=== PATIENT | male | born 1985 | race Caucasian/White ===

== ENCOUNTER 2018-11-23 20:11 | Inpatient (IN) | payer MEDICAID ==
[~2018-11-23] VITALS: Ht 182.9 cm; Wt 74.4 kg
[2018-11-23] MEDS ORDERED: ONDANSETRON HCL/PF 4 MG/2 ML VIAL IVP ONE (21:00)
[2018-11-23] MEDS ORDERED: HYDROCODONE/APAP 5/325MG 1 EACH TABLET PO ONE (21:00)
[2018-11-23] MEDS ORDERED: IV NS 0.9% 1,000 ML BAG IV ONE (21:00)
[2018-11-23] MEDS ORDERED: VANCOMYCIN 1 GM in IV D5W 250 ML IV ONE (21:00)
[2018-11-23 21:13] LABS: BASOPHILS # (AUTO) 0.1 /CMM (0.0-0.2); BASOPHILS % (AUTO) 0.9 % (0.0-2.0); EOSINOPHILS % (AUTO) 1.7 % (0.0-6.0); HEMATOCRIT 27 % (39-51); HEMOGLOBIN 8.4 g/dL (13.5-17.5); LYMPHOCYTES # (AUTO) 1.1 /CMM (0.8-4.8); LYMPHOCYTES % (AUTO) 10.3 % (20.0-44.0); MEAN CORPUSCULAR HGB CONC 31 g/dl (31.0-36.0); MEAN CORPUSCULAR VOLUME 70 fL (80-96); MONOCYTES # (AUTO) 1.2 /CMM (0.1-1.30); MONOCYTES % (AUTO) 11.1 % (2.0-12.0); NEUTROPHILS # (AUTO) 8.3 /CMM (1.8-8.9); PLATELET COUNT (AUTO) 822 /CMM (150-450); RED BLOOD CELL COUNT(AUTO) 3.92 MIL/uL (4.5-6.0); WHITE BLOOD COUNT (AUTO) 10.9 K/uL (4.3-11.0)
[2018-11-23] MEDS ORDERED: VANCOMYCIN 1 GM VIAL ONE (21:16)
[2018-11-23] MEDS ORDERED: ONDANSETRON HCL/PF 4 MG/2 ML VIAL ONE (21:16)
[2018-11-23] MEDS ORDERED: HYDROCODONE/APAP 5/325MG 1 EACH TABLET ONE (21:17)
[2018-11-23 21:22] LABS: CALCIUM, SERUM 8.8 mg/dL (8.5-10.1); CARBON DIOXIDE 29 mmol/L (21-32); CHLORIDE 103 mmol/L (98-107); CREATININE 0.9 mg/dL (0.6-1.3); GLUCOSE 144 mg/dL (74-106); POTASSIUM 4.1 mmol/L (3.5-5.1); SODIUM SERUM 139 mmol/L (136-145); UREA NITROGEN, BLOOD 19 mg/dL (7-18)
--- NOTE | 2018-11-23 21:25 | NUR ---
BIBRA. C/O "FOUND OUTSIDE, HAVING BUTTOCK PAIN FROM PRESSURE ULCER. +N.V +DIZZY. +LEG PAIN" AOX4. VSS. R LEG AMPUTATION FROM CELLULITIS. PT AAOX4, VSS. RR EVEN & UNLABORED. DENIES CP, SOB, WEAKNESS @ THIS TIME. PT HAS STAGE 3 DECUB ON SACRAL, RT BUTTOCK & LEFT HEEL. WOUND ON RT LOWER LEG & LT FOOT. PT SEEN & EVAL'D BY STACI NIELSEN. MEDICATED ORDERED & WILL CONT TO MONITOR.
[2018-11-23 21:38] LABS: ACETAMINOPHEN 43 ug/ml (10-30); ALANINE AMINOTRANSFERASE 12 U/L (12-78); ALCOHOL, BLOOD < 3 mg/dL (0-0); ALKALINE PHOSPHATASE 114 U/L (46-116); ASPARTATE AMINOTRANSFERASE 20 U/L (15-37); BILIRUBIN,DIRECT 0.1 mg/dL (0.0-0.2); BILIRUBIN,TOTAL 0.1 mg/dL (0.2-1.0); TOTAL PROTEIN, SERUM 7.3 g/dL (6.4-8.2)
--- NOTE | 2018-11-23 22:03 | NUR ---
CALLED [facility]. HEALTH PROGRAM MANAGER WAS PAGED.
[2018-11-23 22:07] LABS: LYMPHOCYTES % (MANUAL) 10 % (16-48); MONOCYTES % (MANUAL) 8 % (0-11.0); NEUTROPHILS % (MANUAL) 82 (42-76)
--- NOTE | 2018-11-23 22:10 | NUR ---
CALLED HOUSE SUP FOR MS BED
--- NOTE | 2018-11-23 22:33 | NUR ---
REPORT GIVEN TO RONEY FRAZIER.
[2018-11-23 23:00] VITALS: BP 136/63
--- NOTE | 2018-11-23 23:00 | NUR ---
MS FISH AND WILDLIFE BIOLOGIST NOTE Patient came to unit via gurney, admitted for cellulitis of the sacral wound. Patient is alert, oriented x 3. Breathing even and unlabored. Not in any distress, on room air. Vital signs taken and recorded. IV access on RAC g#20, intach, patent, no signs of infiltration. Skin assessment done, pictures taken and placed in chart. Oriented to call light- placed within easy reach. bed in low, locked position. Will continue to monitor accordingly
[2018-11-23] MEDS ORDERED: QUET400T PO (23:09)
[2018-11-23] MEDS ORDERED: PREG300C PO (23:09)
[2018-11-23] MEDS ORDERED: HYDROCODONE/APAP 5/325MG 1 EACH TABLET PO PRN (23:30)
[2018-11-23] MEDS ORDERED: Z GUARD REMEDY 2 OZ OINT TP PRN (23:30)
[2018-11-23] MEDS ORDERED: ENOXAPARIN SODIUM 40 MG/0.4 ML DISP.SYRIN SQ SCH (23:30)
[2018-11-23] MEDS ORDERED: MAG HYDROX/AL HYDROX/SIMETH 30 ML UDC PO PRN (23:30)
[2018-11-23] MEDS ORDERED: MAGNESIUM HYDROXIDE 30 ML UDC PO PRN (23:30)
[2018-11-23] MEDS ORDERED: ACETAMINOPHEN 325 MG TABLET PO PRN (23:30)
[2018-11-23] MEDS ORDERED: ZOLPIDEM TARTRATE 5 MG TABLET PO PRN (23:30)
[2018-11-23 23:32] LABS: APPEARANCE,URINE Clear (CLEAR); BILIRUBIN,URINE SMALL (NEGATIVE); BLOOD, URINE Negative Ery/uL (NEGATIVE); COLOR,URINE Yellow (YELLOW); KETONES,URINE Trace (NEGATIVE); LEUKOCYTE ESTERASE ,URINE Negative (NEGATIVE); NITRITE, URINE Negative (NEGATIVE); PH,URINE 8.5 (5.0-8.0); PROTEIN,URINE Trace mg/dl (NEGATIVE); UGLUCOSE Negative (NEGATIVE); UROBILINOGEN,URINE >=8.0 EU/dL (0.2)
[2018-11-23 23:38] LABS: BACTERIA,URINE Few /HPF (None Seen); RBC,URINE NONE SEEN /HPF (0-2); SQUAMOUS EPITHELIAL CELL,UR Few /HPF (None Seen); WBC,URINE NONE SEEN /HPF (0-3)
[2018-11-23] MEDS: MORPHINE SULFATE INJ 2 MG/ML DISP.SYRIN IV PRN (23:40)
[2018-11-23] MEDS ORDERED: ZOSYN IVPB 3.375 G in IV D5W 50ml IV ONE (23:45)
[2018-11-24] MEDS ORDERED: PIPERACILLIN /TAZOBACTAM 3.375 G VIAL IV ONE (00:44)
--- NOTE | 2018-11-24 00:48 | NUR ---
RN NOTES Received a telephone order from Dr. Sidhu to GAMALIEL velazquez. Order noted and carried out
[2018-11-24 02:35] VITALS: BP 136/63
[2018-11-24 06:22] LABS: BASOPHILS % (AUTO) 0.5 % (0.0-2.0); EOSINOPHILS % (AUTO) 3.4 % (0.0-6.0); HEMATOCRIT 30 % (39-51); HEMOGLOBIN 8.8 g/dL (13.5-17.5); LYMPHOCYTES # (AUTO) 1.3 /CMM (0.8-4.8); LYMPHOCYTES % (AUTO) 15.5 % (20.0-44.0); MEAN CORPUSCULAR HGB CONC 30 g/dl (31.0-36.0); MEAN CORPUSCULAR VOLUME 71 fL (80-96); MONOCYTES # (AUTO) 1.3 /CMM (0.1-1.30); MONOCYTES % (AUTO) 15.4 % (2.0-12.0); NEUTROPHILS # (AUTO) 5.4 /CMM (1.8-8.9); NEUTROPHILS % (AUTO) 65.2 % (43.0-81.0); PLATELET COUNT (AUTO) 771 /CMM (150-450); WHITE BLOOD COUNT (AUTO) 8.2 K/uL (4.3-11.0)
--- NOTE | 2018-11-24 06:34 | NUR ---
MS RN CLOSING NOTES Patient still sleeping in bed, easily arousable. Breathing even and unlabored. Not in any distress. On 2L O2 via nasal cannula. No acute changes overnight. No complaints of pain overnight. Patient used CPM machine for about 2 hrs- tolerating well. Peripheral IV infusing at 50mL/hr. All needs attended to. Will endorse AMANDEEP to oncoming RN. Addendum: 11/24/18 at 0635 by RONEY MARTINEZ RN WRONG PATIENT
--- NOTE | 2018-11-24 06:43 | NUR ---
MS RN CLOSING NOTES Patient still sleeping in bed, arousable. Breathing even and unlabored. Not in any distress, on room air. IV access on RAC g#20 intact and patent. No complaints of pain or discomfort at this time. No acute changes overnight. All needs attended to. Safety measures in place. Will endorse AMANDEEP to oncoming RN
[2018-11-24 07:06] LABS: CALCIUM, SERUM 8.6 mg/dL (8.5-10.1); MAGNESIUM 1.8 mg/dL (1.8-2.4); PHOSPHORUS 3.4 mg/dL (2.5-4.9); POTASSIUM 4.2 mmol/L (3.5-5.1)
[2018-11-24] MEDS ORDERED: FEE PK DOSING 1 MIN EA MC ONE (07:08)
--- NOTE | 2018-11-24 07:45 | NUR ---
MS RN NOTES RECEIVED PATIENT IN BED ASLEEP, AROUSABLE. HOB ELEVATED. DENIES ANY C/O PAIN NOR DISCOMFORT AT THIS TIME. RAC PERIPHERAL LINE INTACT AND PATENT WITHOUT S/S OF COMPLICATIONS. RESTING COMFORTABLY IN BED. BED IN LOWEST POSITION. CALL LIGHT WITHIN REACH. BED ALARM ON.
[2018-11-24 08:00] VITALS: BP 143/83
[2018-11-24 08:10] LABS: THYROID STIMULATING HORMONE 1.955 uIU/mL (0.358-3.74)
[2018-11-24] MEDS: VANCOMYCIN 1 GM in IV D5W 250 ML IV SCH ×3 (08:34→22:08)
[2018-11-24 08:54] LABS: BAND % (MANUAL) 3 % (0.0-5.0); EOSINOPHILS % (MANUAL) 4 % (0-4); LYMPHOCYTES % (MANUAL) 18 % (16-48); MONOCYTES % (MANUAL) 13 % (0-11.0); NEUTROPHILS % (MANUAL) 62 (42-76)
[2018-11-24] MEDS: MORPHINE SULFATE INJ 2 MG/ML DISP.SYRIN IV PRN ×3 (09:17→17:58)
[2018-11-24] MEDS: ONDANSETRON HCL/PF 4 MG/2 ML VIAL IVP PRN (09:18)
--- NOTE | 2018-11-24 09:30 | NUR ---
MS RN NOTES SPOKE TO PATIENT AND VERIFIED DOSE FOR SEROQUEL AND LYRICA. PATIENT STATES, HE TAKES SEROQUEL 400 MG AND LYRICA 600MG ALL AT ONCE AT NIGHT. NOTIFIED JASS FROM PHARMACY.
--- NOTE | 2018-11-24 10:00 | NUR ---
MS RN NOTES NOTED PATIENT PULLED OUT IV PERIPHERAL LINE, NEW IV SITE INITIATED TO RIGHT HAND #22 LAZARA WELL. INTACT AND PATENT. FREQUENT REMINDERS AND EDUCATION PROVIDED TO PATIENT FOR PROPER POSITIONING IN BED. PATIENT INDEPENDENT WITH BED MOBILITY. PATIENT ABLE TO PUT SELF IN BED ALVARADO AND CONTINENT OF BLADDER WITH THE USE OF URINAL. PATIENT FREQUENTLY VISUALLY CHECKED DUE TO PATIENT SLEEPING WITH HEAD AND ARM HANGING ON SIDE OF HEAD. DESPITE EDUCATION AND RISKS EXPLAINED, PILLOWS PROVIDED AND EXTRA BLANKETS REQUESTED, PATIENT PREFERS TO SLEEP IN THAT POSITION. EDUCATED PATIENT OF IV TUBING AND NOT TO REMOVE TUBING AND TO CALL FOR ASSISTANCE. CALL LIGHT WITHIN REACH. BED IN LOWEST POSITION.
[2018-11-24] MEDS: PIPERACILLIN /TAZOBACTAM 3.375 G in IV D5W 100 ML IV SCH ×2 (10:03→17:58)
--- NOTE | 2018-11-24 10:20 | NUR ---
WOUND CARE CONSULT: PT PRESENTS WITH LEFT FOOT AND HEEL ULCERS, RT BELOW KNEE AMPUTATION STUMP ESCHAR, RT AND LEFT BUTTOCK STAGE 4 ULCERS, LEFT MID BUTTOCK STAGE 3 ULCER AND SACRAL STAGE 4 ULCER, PRESENT ON ADMISSION. RECOMMENDATIONS MADE FOR WOUND CARE AND DISCUSSED WITH NURSING STAFF. DEFER TO DPM FOR LOWER EXTREMITY WOUNDS. DR POLK AWARE OF DPM CONSULT REQUEST AND DR JAIME KELLEY AWARE OF SURGICAL CONSULT REQUEST. ISOFLEX LOW AIRLOSS BED TO BE PLACED. WILL SEE PRN. HARMON IN AGREEMENT WITH PLAN OF CARE. Addendum: 11/24/18 at 1023 by DEVENDRA BOWER WNDNU Amended: Links added.
[2018-11-24] MEDS ORDERED: HYDROGEL DRESSING 90 GM TUBE TP PRN (10:30)
--- NOTE | 2018-11-24 11:27 | NUR ---
Social service consult requested by Dr. Sidhu for homelessness. Pt. is a 33 year old male with a history of bipolar disorder who came to ED complaining of chronic sacral and foot wounds which he states have been more painful recently. OSWALDO met with pt. bedside. Pt. is alert and oriented x 4. Pt. has his wheelchair bedside. Pt. has right leg BKA. Pt. is not very cooperative with SW. When asked how long he has been homeless, pt. states, " I don't know." OSWALDO asked pt. what is his discharge plan, and pt. stated, " I am going to live my life, I have hotels and places I can go." SW is unable to assess any further due to pt. being uncooperative. OSWALDO updated Med Surg 3 FAIZAN Boo and medical case worker Brady. OSWALDO is available, if needed.
[2018-11-24] MEDS: HYDROGEL DRESSING 90 GM TUBE TP SCH (13:30)
[2018-11-24] MEDS: DAKINS QUARTER STRENGTH (0.125%) 480 ML BOTTLE TOP SCH (13:30)
--- NOTE | 2018-11-24 14:30 | NUR ---
MS RN NOTES PATIENT OBSERVED REMOVING IV TUBING CONNECTION USING TEETH AND HAND. REMINDED AND EDUCATED PATIENT TO CALL FOR ASSISTANCE AND THAT IV MEDICATIONS ARE BEING GIVEN.
--- NOTE | 2018-11-24 14:35 | NUR ---
MS RN NOTES SEEN BY JASE AND JASE BENAVIDES DISCUSSED WITH PATIENT REGARDING RECCOMMENDATIONS AND TREATMENT. PATIENT DOES NOT WANT AND SURGICAL DEBRIDEMENT OR ANY TYPE OF SURGERY DONE TO ANY WOUNDS.
--- NOTE | 2018-11-24 14:50 | NUR ---
MS RN NOTES PATIENT PULLED OUT IV. GAUZE DRESSING APPLIED.
--- NOTE | 2018-11-24 14:50 | NUR ---
MS RN NOTES ATTEMPTED TO START IV PERIPHERAL BUT TO NO AVAIL. RELAYED TO JAIMEE RINCON REGARDING PATIENT PULLING OUT IV TUBING WITH NEW ORDER NOTED AND CARRIED OUT FOR PICC LINE.
--- NOTE | 2018-11-24 14:52 | NUR ---
MS RN NOTES SPOKE TO PATIENT REGARDING PICC LINE INSERTION AND EDUCATION PROVIDED, PATIENT CONSENTS TO PICC INSERTION.
--- NOTE | 2018-11-24 15:00 | NUR ---
MS RN NOTES SPOKE TO PATIENT REGARDING CONSENT FORM, PATIENT NOW REFUSED TO HAVE PICC INSERTION DESPITE OF EDUCATION, RISKS AND BENEFITS EXPLAINED.
--- NOTE | 2018-11-24 15:43 | NUR ---
MS RN NOTES VASCULAR ACCESS NURSE SPOKE TO PATIENT, EDUCATED PATIENT REGARDING PICC LINE INSERTION AND RISKS AND BENEFITS DUE TO MED DIR ANTIBIOTIC USE. EXPLAINED TO PATIENT PROCESS OF PICC LINE INSERTION BY VASCULAR ACCESS NURSE, PATIENT STRONGLY REFUSED PICC LINE INSERTION DESPITE OF EXPLANATIONS OF RISKS AND BENEFITS AND EDUCATION. PT STATED, " DON'T MIND GETTING POKE ALL THE TIME. " VASCULAR ACCESS NURSE SPOKE TO PATIENT AGAIN , PATIENT CONSENTS TO MID LINE INSERTION.
[2018-11-24 16:00] VITALS: BP 113/71
[2018-11-24] MEDS: ENSURE ENLIVE CHOC 237 ML CAN PO SCH (16:00)
[2018-11-24] MEDS: PROSOURCE / PROSTAT (PYXIS) 30 ML UDC GT SCH ×4 (16:00→18:44)
--- NOTE | 2018-11-24 18:50 | NUR ---
MS RN CLOSING NOTES PATIENT ASLEEP IN BED, BUT AROUSABLE TO VERBAL AND TACTILE STIMULI. ALERT AND ORIENTEDX4 PATIENT WITH EPISODES OF YELLING AND MAKING DISRUPTIVE NOISES OUT OF NOWHERE DURING THE SHIFT RELAYED TO SERGEY HERMOSILLO WITH NEW ORDER NOTED AND CARRIED FOR PSYCH CONSULT. FAXED FACE SHEET TO [facility] UN[facility]. PATIENT ALSO WITH BEHAVIOR OF SPITTING ON THE FLOOR, PUTTING TRASH ALL OVER THE BED, FLOOR AND SPILLING DRINKS. ENCOURAGE PATIENT TO CALL FOR ASSISTANCE, TOWEL GIVEN BUT PATIENT CONTINUES THE SAME HABITS DESPITE EDUCATION AND REENFORCEMENT PROVIDED. ZULEMA MIDLINE #18 INTACT AND PATENT. RESTING COMFORTABLY IN BED. CALL LIGHT WITHIN REACH. MAINTAINED A CLUTTER FREE ENVIRONMENT. BED IN LOWEST POSITION. WOUND CARE DONE, LAZARA WELL.
--- NOTE | 2018-11-24 19:35 | NUR ---
RN OPEN NOTES RECEIVED PATIENT AWAKE IN BED. A/O3. NO SIGNS OF DISTRESS OR DISCOMFORT. BREATHING EVEN AND UNLABORED. HAS ZULEMA MIDLINE WITH ZOSYN INFUSING, PATENT AND INTACT, NO SIGNS OF REDNESS OR INFILTRATION. BED IN LOW LOCKED POSITION WITH SIDE RAILS X2. CALL LIGHT WITHIN REACH. WILL CONTINUE TO MONITOR.
[2018-11-24 20:00] VITALS: BP 121/69
--- NOTE | 2018-11-24 20:43 | NUR ---
RN NOTES ADMINISTERED NORCO 5/325 ORDERED FOR JULISA LEG PAIN 11/27 AT PATIENT REQUEST. VSS. WILL CONTINUE TO MONITOR.
[2018-11-24] MEDS: QUETIAPINE FUMARATE 100 MG TABLET PO SCH (22:09)
[2018-11-24] MEDS: PREGABALIN 100 MG CAPSULE PO SCH (22:18)
[2018-11-25] MEDS: PIPERACILLIN /TAZOBACTAM 3.375 G in IV D5W 100 ML IV SCH ×4 (00:37→17:50)
[2018-11-25] MEDS: VANCOMYCIN 1 GM in IV D5W 250 ML IV SCH ×4 (05:06→19:50)
[2018-11-25] MEDS: MORPHINE SULFATE INJ 2 MG/ML DISP.SYRIN IV PRN ×3 (05:19→19:45)
--- NOTE | 2018-11-25 05:19 | NUR ---
RN NOTES ADMINISTERED MORPHINE 2MG ORDERED FOR JULISA LEG PAIN 8 AT PATIENT REQUEST. VSS. WILL CONTINUE TO MONITOR.
--- NOTE | 2018-11-25 05:45 | NUR ---
RN NOTES RECEIVED TELEPHONE CALL FROM PATIENTS MOTHER DAVID HUNTER, MOTHER STATES THAT SHE IS THE PATIENT LEGAL GUARDIAN AND WOULD LIKE TO KNOW WHATS GOING ON WITH HIM. THERE IS NO NEXT OF KIN LISTED IN PATIENTS CHART. MOTHER TO FAX GUARDIANSHIP PAPERWORK FROM [place]. Addendum: 11/25/18 at 0548 by REAL VARNER RN ERROR: WRONG TIME ENTERED. PHONE CALL RECEIVED PAT [phone]
--- NOTE | 2018-11-25 06:05 | NUR ---
RN NOTES RECEIVED TELEPHONE CALL FROM PATIENTS MOTHER DAVID HUNTER, CONFIRMED THAT WE HAVE RECEIVED PAPERWORK SHE FAXED REGARDING GUARDIANSHIP. ADVISED MOTHER THAT PATIENT STATES THAT THE PAPERWORK SHE HAS IS AND IS NOT VALID IN THE STATE OF [place]. ACCORDING TO PATIENT HIS MOTHER IS NO LONGER HIS LEGAL GUARDIAN AND HE DOES NOT WANT US TO DISCLOSE ANY INFORMATION TO HER. INFORMED MOTHER THAT WE WILL NOTIFY MD AND CASE MANAGEMENT TO SORT OUT AND DETERMINE IF SHE IS IN FACT HIS LEGAL GUARDIAN. MOTHER STATES SHE CAN BE REACHED AT [phone].
--- NOTE | 2018-11-25 07:15 | NUR ---
RN CLOSING NOTES PATIENT RESTING IN BED, EASILY AROUSABLE. A/O3. NO SIGNS OF DISTRESS OR DISCOMFORT. BREATHING EVEN AND UNLABORED. HAS ZULEMA MIDLINE, PATENT AND INTACT, NO SIGNS OF REDNESS OR INFILTRATION. ALL NEEDS MET. NO SIGNIFICANT CHANGES THROUGH THE NIGHT. BED IN LOW LOCKED POSITION WITH SIDE RAILS X2. CALL LIGHT WITHIN REACH. WILL ENDORSE TO AM SHIFT FOR AMANDEEP.
[2018-11-25 07:36] LABS: BASOPHILS % (AUTO) 0.7 % (0.0-2.0); HEMATOCRIT 28 % (39-51); HEMOGLOBIN 8.4 g/dL (13.5-17.5); LYMPHOCYTES # (AUTO) 1.4 /CMM (0.8-4.8); LYMPHOCYTES % (AUTO) 27.4 % (20.0-44.0); MEAN CORPUSCULAR HGB CONC 30 g/dl (31.0-36.0); MEAN CORPUSCULAR VOLUME 71 fL (80-96); MONOCYTES # (AUTO) 0.9 /CMM (0.1-1.30); MONOCYTES % (AUTO) 18.5 % (2.0-12.0); NEUTROPHILS # (AUTO) 2.4 /CMM (1.8-8.9); NEUTROPHILS % (AUTO) 47.4 % (43.0-81.0); PLATELET COUNT (AUTO) 699 /CMM (150-450); RED BLOOD CELL COUNT(AUTO) 3.88 MIL/uL (4.5-6.0); WHITE BLOOD COUNT (AUTO) 5.1 K/uL (4.3-11.0)
[2018-11-25 07:54] LABS: CALCIUM, SERUM 9.1 mg/dL (8.5-10.1); CREATININE 1.2 mg/dL (0.6-1.3); PHOSPHORUS 4.2 mg/dL (2.5-4.9); POTASSIUM 3.9 mmol/L (3.5-5.1)
[2018-11-25 08:00] VITALS: BP 106/56
--- NOTE | 2018-11-25 08:00 | NUR ---
MS RN OPENING NOTES Received Patient resting and asleep in bed. A/O x 3. VS stable with no acute distress. Breathing even and unlabored on room air with no respiratory distress. No signs and symptoms of pain. 18g Midline on ZULEMA clean, dry, intact and flushing well. Safety precautions in place. Bed locked and set to lowest position with side rails x 2 up. Call light within reach. Will continue to monitor.
[2018-11-25] MEDS: ENSURE ENLIVE CHOC 237 ML CAN PO SCH (09:00)
[2018-11-25] MEDS: PROSOURCE / PROSTAT (PYXIS) 30 ML UDC GT SCH (09:00)
[2018-11-25] MEDS: DAKINS QUARTER STRENGTH (0.125%) 480 ML BOTTLE TOP SCH (09:00)
[2018-11-25] MEDS: HYDROGEL DRESSING 90 GM TUBE TP SCH (09:00)
[2018-11-25] MEDS: CADEXOMER IODINE 40 GM TUBE TP SCH (09:00)
--- NOTE | 2018-11-25 09:00 | NUR ---
MS RN NOTES Patient refused Ensure and Prostat, but noted with good PO intake. Patient ate 100% of breakfast and also requested an additional tray and ate 90%. Patient in stable condition. Will continue to monitor.
--- NOTE | 2018-11-25 09:30 | NUR ---
MS FRAZIER NOTES Patient refused wound treatment at this time. Explained and reviewed risks of refusal and 89. Patient verbalized understanding. Will continue to monitor. Addendum: 11/25/18 at 1805 by AMADO DENT RN DISREGARD "and 89"
[2018-11-25 09:33] LABS: BAND % (MANUAL) 4 % (0.0-5.0); EOSINOPHILS % (MANUAL) 6 % (0-4); LYMPHOCYTES % (MANUAL) 31 % (16-48); MONOCYTES % (MANUAL) 19 % (0-11.0); NEUTROPHILS % (MANUAL) 40 (42-76)
[2018-11-25] MEDS: ONDANSETRON HCL/PF 4 MG/2 ML VIAL IVP PRN (12:33)
[2018-11-25 16:00] VITALS: BP 119/60
--- NOTE | 2018-11-25 17:00 | NUR ---
MS RN NOTES Offered once more to provided wound treatment. Patient refused. Explained and reviewed risks of infection and worsening of wound. Patient stated that "I want to continue my own treatment and just leave it open to air. This treatment works best for me". Patient in stable condition. Will continue to monitor.
[2018-11-25] MEDS: LACTOBACILLUS RHAMNOSUS GG 1 EACH CAP.SPRINK PO SCH (17:50)
--- NOTE | 2018-11-25 18:07 | NUR ---
MS RN NOTES Patient disconnects himself from IV ABX. Received only 150cc out of 250cc of Vancomycin IV ABX. Patient refuses to be reconnected and states, "I am peeing too much and it hurts". Patient also refusing Zosyn at this time. Reviewed and explained risks of refusal. Patient verbalized understanding and still refuses IV ABX. Notified Bela URBAN ANTHROPOLOGIST and Pharmacy. NNO. Will continue to monitor.
--- NOTE | 2018-11-25 19:04 | NUR ---
MS RN CLOSING NOTES Patient resting and asleep in bed. A/O x 3. VS stable with no acute distress. Breathing even and unlabored on room air with no respiratory distress. Patient stated pain level of 8/10 on BILATERAL BUTTOCKS. Will endorse pain managment to oncoming shift. 18g Midline on ZULEMA clean, dry, intact and flushing well. Safety precautions in place. Bed locked and set to lowest position with side rails x 2 up. Call light within reach. Will endorse plan of care to oncoming shift.
--- NOTE | 2018-11-25 19:20 | NUR ---
MS RN PM OPENING NOTES BEDSIDE REPORT RECIEVED FROM AMADO FRAZIER. Patient SITTING UP in bed. A/O x 3. POC REVIEWED QUESTIONS CONCERNS ADDRESSED. REVIEWED PAIN MANAGEMENT PLAN WITH PATIENT PATIENT REPORT HAVING 8/10 TABATHA TO BUTOCK AND LEGS. PATIENT IN NO APPARENT DISTRESS. Breathing even and unlabored on room air with no respiratory distress. IV HEPLOCKED DRESSING CDI. Bed locked and set to lowest position with side rails x 2 up. Call light within reach. REVIEWED WOUND MANAGEMENT PLAN WITH PATIENT AND OFFERED TO DRESS WOUNDS PATIENT INFORMED IF HE KEEPS REFUSING TREATMENT THAT WOUNDS MAY NOT HEAL/ OR NOT HEAL PROPERLY, PATIENT STATES, "i JUST DONT WANT IT DONE. IF I CHANGE MY MIND I WILL LET YOU KNOW. REVIEWED ANTIBIOTIC SCHEDULE WITH PATIENT AND PATIENT IS WILLING TO ALLOW THEIR ADMINISTRATION WILL CONT TO MONITOR.
[2018-11-25 20:00] VITALS: BP 128/78
--- NOTE | 2018-11-25 20:00 | NUR ---
WOUND CARE REFUSED. REVIEWED WOUND TREATMENT ORDERS WITH PATIENT. PATIENT WOUNDS ARE CURRENTLY NOT DRESSED. PATIENT REFUSING TREATMENT. PATIENT INFORMED THAT IF NOT TREATED THEY MAY NOT HEAL OR MAY HEAL IMPROPERLY. PATIENT STATES "I DON'T WANT THEM DRESSED THEY ARE FINE, JUST LEAVE THEM THEY ARE." PATIENT INFORMED IF HE CHANGES HIS MIND TO ASK FOR WOUND TREATMENT.
--- NOTE | 2018-11-25 22:30 | NUR ---
PATIENT SHOWER./ MIDLINE DRESSING CHANGE. PATIENT FOUND IN ROOM SKOOTING ON BUTT TOWARD DOOR. STATES "I WAS JUST GOING TO TAKE A SHOWER." CK MOSCOSO CAME AND PATIENT AGREED TO BE ASSISTED TO WHEEL CHAIR AND ASSISTED WITH SHOWER WHICH IS ACROSS THE LERNER. PATIENT ENCOURAGED TO USE SHOWER CHAIR. INFORMED IT IS MORE HYGENIC THEN SITTING ON FLOOR PATIENT STATES, "I DON'T WANT TO SIT ON THAT THING, I WILL BE FINE." PATIENT SHOWERED AND ASSISTED BACK TO ROOM. 2078 BACK IN ROOM IT WAS FOUND THAT MIDLINE DRESSING WAS PEELING OFF SO MIDLINE DRESSING CHANGED PER PROTOCOL.
[2018-11-25] MEDS: QUETIAPINE FUMARATE 100 MG TABLET PO SCH (22:57)
[2018-11-25] MEDS: PREGABALIN 100 MG CAPSULE PO SCH (23:02)
[2018-11-26] MEDS: MORPHINE SULFATE INJ 2 MG/ML DISP.SYRIN IV PRN ×2 (00:03→08:30)
[2018-11-26] MEDS: PIPERACILLIN /TAZOBACTAM 3.375 G in IV D5W 100 ML IV SCH ×2 (00:04→08:28)
[2018-11-26] MEDS: VANCOMYCIN 1 GM in IV D5W 250 ML IV SCH ×2 (03:27→07:48)
[2018-11-26 07:19] LABS: CALCIUM, SERUM 8.6 mg/dL (8.5-10.1); CREATININE 1.1 mg/dL (0.6-1.3); POTASSIUM 4.3 mmol/L (3.5-5.1)
--- NOTE | 2018-11-26 07:35 | NUR ---
MS RN OPENING NOTES RECEIVED PT IN BED, INTERMITTENTLY DOZING OFF; EASILY AROUSED; A/O X3. TOLERATING RA, WITH NO ACUTE RESPIRATORY DISTRESS. PT REQUESTING FOR PRN PAIN MEDICINE, BUT PT DENIES ANY CONCERNS OR QUESTIONS AT THIS TIME. PIV ZULEMA MIDLINE G18, FLUSHED WITH NS, INTACT AND OPERATIONAL. PT KEPT COMFORTABLE. PT'S BED IN LOWEST, LOCKED POSITION WITH SR X3. CALL LIGHT KEPT WITHIN REACH. WILL CONTINUE PLAN OF CARE.
--- NOTE | 2018-11-26 07:49 | NUR ---
RN NOTES VANCO TROUGH AT 37 AND IS HIGH. DOSE FOR 8AM HELD. WILL CONTINUE PLAN OF CARE.
[2018-11-26 08:00] VITALS: BP 122/77
[2018-11-26] MEDS: ENSURE ENLIVE CHOC 237 ML CAN PO SCH (08:28)
[2018-11-26] MEDS: PROSOURCE / PROSTAT (PYXIS) 30 ML UDC GT SCH (08:28)
[2018-11-26] MEDS: LACTOBACILLUS RHAMNOSUS GG 1 EACH CAP.SPRINK PO SCH (08:39)
[2018-11-26] MEDS: CADEXOMER IODINE 40 GM TUBE TP SCH (09:00)
[2018-11-26] MEDS: HYDROGEL DRESSING 90 GM TUBE TP SCH (09:00)
[2018-11-26] MEDS: DAKINS QUARTER STRENGTH (0.125%) 480 ML BOTTLE TOP SCH (09:00)
--- NOTE | 2018-11-26 12:44 | NUR ---
RN NOTES PT WILL BE DISCHARGED AMA. PT AWARE AND SIGNED AMA FORM. MAEVE/RADHA AND ONLINE PRODUCER/CC AWARE WELL.
--- NOTE | 2018-11-26 13:20 | NUR ---
MS DELI MANAGER NOTES PT DISCHARGED AMA. PT IS HOMELESS. PT A/O X3-4. TOLERATING RA, WITH NO ACUTE RESPIRATORY DISTRESS. PT DENIES ANY PAIN OR DISCOMFORT AT THE TIME OF DISCHARGE. PIV TO ZULEMA MIDLINE G18, REMOVED AND APPLIED DRY DRESSING. PT REFUSED TO HAVE WOUNDS BE TAKEN PICTURE, AND REFUSE TO HAVE WOUNDS TO BE DRESSED. RN OFFERED STUFF FOR WOUND CARE, PT REFUSED TO TAKE IT. PT SIGNED DISCHARGE INSTRUCTIONS AND INVENTORY LIST. PT MADE AWARE HE NEEDS AUTO SERVICE MECHANIC ANTIBIOTICS BUT REFUSED; PT PROVIDED INFORMATION FOR FOLLOW UP CLINICS. ALL NEEDS AND CARE PROVIDED. ROUGHENER/CC AND CN/RADHA AWARE OF AMA DISCHARGE OF PT. PT LEFT THE UNIT AT 1115. PT REFUSED TO BE ESCORTED TO THE LOBBY AND PREFERS TO GO ALONE.
--- NOTE | 2018-11-26 14:37 | NUR ---
SW was informed by FREDDIE Keys that pt. left AMA . Pt. refused to sign Homeless Waiver Form.
[2018-11-26] MEDS ORDERED: VANCOMYCIN 1 GM in IV D5W 250 ML IV SCH (16:00)
== END 2018-11-26 13:20 | disposition left against medical advice (07) | DRG 380 ==
LOC: ER 20:16 → MED 22:19
PROVIDERS: ADMIT Student in an Organized Health Care Education/Training Program; ATTEND Nurse Practitioner Acute Care
PROC: 05HC33Z Insertion of Infusion Device into Left Basilic Vein, Percutaneous Approach (ICD-10-PCS; principal; 2018-11-23)
DX: L89.153 Pressure ulcer of sacral region, stage 3 (principal); E43 Unspecified severe protein-calorie malnutrition; L89.624 Pressure ulcer of left heel, stage 4; L89.309 Pressure ulcer of unspecified buttock, unspecified stage; D68.59 Other primary thrombophilia; G82.20 Paraplegia, unspecified; M86.9 Osteomyelitis, unspecified; F31.63 Bipolar disorder, current episode mixed, severe, without psychotic features; L89.623 Pressure ulcer of left heel, stage 3; L89.893 Pressure ulcer of other site, stage 3; L03.90 Cellulitis, unspecified; Z59.0 Homelessness; D64.9 Anemia, unspecified; Z99.3 Dependence on wheelchair; Z91.81 History of falling; Z91.19 Patient's noncompliance with other medical treatment and regimen; Z89.511 Acquired absence of right leg below knee; Z79.899 Other long term (current) drug therapy; F17.200 Nicotine dependence, unspecified, uncomplicated; D50.9 Iron deficiency anemia, unspecified; R29.6 Repeated falls
CPT/HCPCS: 36415; 36569; 71045-TC; 72190-TC; 73630-TC; 80048-TC; 80061-TC; 80076-TC; 80202-TC; 80305; 81000-TC; 83605-TC; 83735-TC; 84100-TC; 84443-TC; 84484-TC; 85025-TC; 85730-TC; 87040-TC; 87070-TC; 87081-TC; 87086-TC; 87186-TC; A6248; A6253; G0378; G0480; J1650; J2270; J2405; J2543; J3370; J7030; J7050; J7060